=== PATIENT | male | born 1960 | race Caucasian/White ===

== ENCOUNTER → 2023-06-30 | Outpatient (CLI) | payer OTHER, SELFPAY ==
[2023-06-30 12:35] LABS: Absolute Lymphocyte Count 1.15 X10^3/uL (0.83-4.51); Absolute Neutrophil Count 2.2 X10^3/uL (2.0-7.7); Basophil# 0.01 X10^3/uL; Basophil% 0.3 % (0-1); Eosinophil# 0.07 X10^3/uL; Eosinophils% 1.9 % (0-5); Hematocrit 45.8 % (40-54); Hemoglobin 15.3 g/dL (13.0-16.5); Lymphocyte # 1.15 X10^3/ul (0.83-4.51); Lymphocyte % 31.3 % (19-41); Mean Corp Hgb Conc 33.4 g/dL (32-36); Mean Corpuscular Hgb 31.5 pg (27.0-32.0); Mean Corpuscular Volume 94.2 fL (80-94); Mean Platelet Vol. 11.1 fl (6.2-12.0); Monocyte# 0.27 X10^3/uL; Monocyte% 7.3 % (0-10); NRBC Flagged by Analyzer 0 % (0-5); Neutrophil # 2.17 X10^3/uL (2.7-7.7); Neutrophil % 58.9 % (47-70); Platelet Count 153 K/mm3 (150-450); RBC Distribution Width CV 13.4 % (11.6-14.6); Red Blood Count 4.86 M/mm3 (4.6-6.2); White Blood Count 3.7 K/mm3 (4.4-11.0)
[2023-06-30 13:14] LABS: ALB/GLOB Ratio 1.2 RATIO (0.9-2.4); AST(SGOT) 18 U/L (15-37); Alanine Aminotransfer ALT/SGPT 26 U/L (16-61); Alkaline Phosphatase 71 U/L (45-117); Anion Gap 4 (5-15); BUN 20 mg/dL (7-18); BUN/Creat Ratio 22.5 RATIO (10-20); Calcium,Total 9.3 mg/dL (8.5-10.1); Chloride 109 mmol/L (98-107); Cholesterol 262 mg/dL (200); Creatinine, Serum 0.89 mg/dL (0.70-1.30); EST Glomerular Filtration Rate 92 mL/min (>60); Est Glom Filt Rate - Afr Amer 111 mL/min (>60); Globulin 3.4 g/dL (2.2-4.2); Glucose 91 mg/dL (74-106); High Density Lipoprotein 60 mg/dL; PSA,Total- Diagnostic < 0.01 ng/mL (0.0-4.0); Potassium 4.5 mmol/L (3.5-5.1); Protein, Total 7.4 g/dL (6.4-8.2); Sodium Level 139 mmol/L (136-145); Triglycerides 71 mg/dL; Very Low Density Lipoprotein 14 mg/dL (5-40)
== END | disposition home or self-care (01) ==
LOC: BIMLAB 11:06
PROVIDERS: Visit Provider Internal Medicine
DX: Z00.00 Encounter for general adult medical examination without abnormal findings (principal); Z13.6 Encounter for screening for cardiovascular disorders; Z85.46 Personal history of malignant neoplasm of prostate
CPT/HCPCS: 36415; 80053; 80061; 84153; 85025

== ENCOUNTER → 2024-01-20 | Outpatient (CLI) | payer OTHER, SELFPAY ==
[2024-01-20 13:42] LABS: PSA,Total- Diagnostic 0.01 ng/mL (0.0-4.0)
== END | disposition home or self-care (01) ==
LOC: BIMLAB 11:11
PROVIDERS: PCP Internal Medicine; Visit Provider Internal Medicine
DX: Z85.46 Personal history of malignant neoplasm of prostate (principal)
CPT/HCPCS: 36415; 84153

== ENCOUNTER → 2024-07-10 | Outpatient (CLI) | payer OTHER, MEDICAID, SELFPAY ==
[2024-07-10 12:10] LABS: Absolute Lymphocyte Count 1.09 X10^3/uL (0.83-4.51); Basophil# 0.03 X10^3/uL; Basophil% 0.9 % (0-1); Eosinophils% 2.9 % (0-5); Hematocrit 44.7 % (40-54); Hemoglobin 14.9 g/dL (13.0-16.5); Lymphocyte # 1.09 X10^3/ul (0.83-4.51); Lymphocyte % 31.2 % (19-41); Mean Corp Hgb Conc 33.3 g/dL (32-36); Mean Corpuscular Hgb 31.6 pg (27.0-32.0); Mean Corpuscular Volume 94.7 fL (80-94); Mean Platelet Vol. 11.3 fl (6.2-12.0); Monocyte# 0.31 X10^3/uL; Monocyte% 8.9 % (0-10); NRBC Flagged by Analyzer 0 % (0-5); Neutrophil # 1.96 X10^3/uL (2.7-7.7); Neutrophil % 56.1 % (47-70); Platelet Count 157 K/mm3 (150-450); RBC Distribution Width CV 13.2 % (11.6-14.6); RBC Distribution Width SD 46.6 fl (35.1-43.9); Red Blood Count 4.72 M/mm3 (4.6-6.2); White Blood Count 3.5 K/mm3 (4.4-11.0)
[2024-07-10 12:36] LABS: ALB/GLOB Ratio 1.1 RATIO (0.9-2.4); AST(SGOT) 20 U/L (15-37); Alanine Aminotransfer ALT/SGPT 31 U/L (16-61); Albumin, Serum 3.9 g/dL (3.2-5.0); Alkaline Phosphatase 68 U/L (45-117); Anion Gap 7 (5-15); BUN 14 mg/dL (7-18); BUN/Creat Ratio 15.2 RATIO (10-20); Calcium,Total 9.3 mg/dL (8.5-10.1); Chloride 110 mmol/L (98-107); Cholesterol 187 mg/dL (200); Creatinine, Serum 0.92 mg/dL (0.70-1.30); EST Glomerular Filtration Rate 88 mL/min (>60); Est Glom Filt Rate - Afr Amer 107 mL/min (>60); Globulin 3.4 g/dL (2.2-4.2); Glucose 99 mg/dL (74-106); High Density Lipoprotein 62 mg/dL; PSA,Total - Annual Screen 0.03 ng/mL (0.00-4.00); Potassium 4.2 mmol/L (3.5-5.1); Protein, Total 7.3 g/dL (6.4-8.2); Sodium Level 142 mmol/L (136-145); Triglycerides 200 mg/dL; Very Low Density Lipoprotein 40 mg/dL (5-40)
== END | disposition home or self-care (01) ==
LOC: BIMLAB 09:02
PROVIDERS: PCP Internal Medicine; Visit Provider Nurse Practitioner
DX: Z00.00 Encounter for general adult medical examination without abnormal findings (principal); C61 Malignant neoplasm of prostate
CPT/HCPCS: 80053; 80061; 84153; 85025; G0103

== ENCOUNTER → 2025-07-16 | Outpatient (CLI) | payer OTHER, SELFPAY ==
--- OUTSIDE RECORDS SUMMARY | 2025-07-16 10:50 | XMS RPT_ITS | CCD ---
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 Name Role Phone BASILIO GONZALEZ Unavailable Unavailable PHYSICIAN, NONE Unavailable Unavailable Forrest Kelsey MD Primary Care Provider [phone] Forrest Kelsey MD Primary Care Provider Forrest Kelsey MD Primary Care Provider FORREST KELSEY Primary Care Unavailable JEOVANY PETERSEN Attending Unavailable FORREST KELSEY Primary Care Unavailable FARNAZ, JAYRAM Referring Unavailable FARNAZ, CECILIOYRAM Attending Unavailable FORREST KELSEY Primary Care Unavailable FORREST KELSEY Primary Care Unavailable FARNAZ, JAYRAM Referring Unavailable FORREST KELSEY Primary Care Unavailable FARNAZ, JAYRAM Referring Unavailable KATARINA KELSEYREY Karlene Primary Care Unavailable FARNAZ, JAYRAM Referring Unavailable FARNAZ, JAYRAM Referring Unavailable FORREST KELSEY Primary Care Unavailable Dr. Liz Salinas Attending Provider Liz Salinas Primary Care Unavailable Liz Salinas Referring Unavailable Claudia Quiñonez Attending Unavailable Liz Salinas Primary Care Unavailable Claudia Quiñonez Attending Unavailable Liz Salinas Primary Care Unavailable Liz Salinas Attending Unavailable Liz Salinas Primary Care Unavailable Liz Salinas Attending Unavailable Liz Salinas Referring Unavailable Medications Current Medications Medication Drug Class(es) Dates Sig (Normalized) Sig (Original) atorvastatin 10 mg oral tablet (3 sources) HMG-CoA Reductase Inhibitor Start: 06-30-2023 End: 09-04-2023 take 1 tablet by mouth at bedtime Atorvastatin (Lipitor) 10 mg tablet Active 10 MG PO AT BEDTIME 90 September 04, 2023 7:15pm azithromycin 250 mg oral tablet (1 source) Macrolide Antimicrobial Start: 03-02-2022 End: 03-07-2022 azithromycin (ZITHROMAX Z-CARLINE) 250 mg tablet Take 2 tablets day one, then, 1 tablet daily until gone. 6 tablet 0 03/02/2022 03/07/2022 Active Comment on above: Take 2 tablets day o ne, then, 1 tablet daily until gone. diphenhydrAMINE hydrochloride 25 mg oral capsule (9 sources) Histamine-1 Receptor Antagonist Start: 06-30-2023 take 1 capsule by mouth at bedtime Diphenhydramine Hcl (Benadryl) 25 mg capsule Active 25 MG PO AT BEDTIME June 30, 2023 12:00am take 25 mg by mouth once daily at bedtime diphenhydramine HCl (BENADRYL ORAL) Take 25 mg by mouth daily at bedtime. 0 Active Comment on above: Take 25 mg by mouth daily at bedtime. tadalafil 20 mg oral tablet (16 sources) Phosphodiesterase 5 Inhibitor Start: 06-30-2023 Tadalafil Active MG PO June 30, 2023 12:00am Start: 12-31-2021 Tadalafil (JYOTI LIS) 20 mg tab(s) Take 1 tablet by mouth as needed. 1-2 hours before sexual intercourse. 30 tablet 5 12/31/2021 Active Tadalafil (CIALI S) 5 mg tablet Take 5 mg by mouth. 0 Active Comment on above: Take 5 mg by mouth. Take 1 tablet by junior th as needed. 1-2 hours before sexual intercourse. Completed/Discontinued Medications Medication Drug Class(es) Dates Sig (Normalized) Sig (Original) mecobalamin (7 sources) take 1 tablet by mouth once daily mecobalamin (B12 ACTIVE ORAL) Take 1 tablet by mouth once daily. 0 Active Comment on above: Take 1 tablet by junior th once daily. multivitamin/folic acid/zinc (XVVCGDMCRREC-LN-G INC ORAL) (7 sources) multivitamin/fol ic acid/zinc (MGKCQHWNVVAO-LH-X INC ORAL) Take by mouth once daily. 0 Active Comment on above: Take by mouth once d aily. 24 hr oxybutynin chloride 10 mg extended release oral tablet (5 sources) Cholinergic Muscarinic Antagonist Start: 03-06-2021 take 1 tablet by mouth once daily oxybutynin ER (DITROPAN XL) 10 mg 24 hr tablet Take 1 tablet by mouth once daily. 30 tablet 3 03/06/2021 Active Comment on above: Take 1 tablet by junior th once daily. Problems Active Problems Problem Classification Problem Date Documented Da te Episodic/Chronic Cancer of prostate (9 sources) Malignant tumor of prostate; Translations: [Malignant neoplasm of prostate] Onset: 08-26-2021 08-26-2021 Chronic Hyperplasia of prostate (7 sources) Benign prostatic hyperplasia; Translations: [Benign prostatic hyperplasia without lower urinary tract symptoms] Onset: 04-27-2018 04-27-2018 Chronic Immunizations and screening for infectious disease (2 sources) Vaccination needed; Translations: [Encounter for immunization] Episodic Other male genital disorders (7 sources) Male erectile dysfunction, unspecified; Translations: [Impotence of organic origin] Onset: 08-26-2021 08-26-2021 Chronic Other upper respiratory infections (1 source) Acute sinusitis; Translations: [Acute sinusitis, unspecified] Episodic Past or Other Problems Problem Classification Problem Date Documented Date Episodic/Chronic Cancer of prostate (1 source) Personal history of malignant neoplasm of prostate; Translations: [Personal history of malignant neoplasm of prostate] Onset: 03-13-2024 Episodic Other connective tissue disease (7 sources) Lateral epicondylitis of right humerus; Translations: [Lateral epicondylitis, right elbow] Onset: 04-27-2018 04-27-2018 Episodic Other eye disorders (1 source) Other specified disorders of eye and adnexa; Translations: [Other specified disorders of eye and adnexa] Onset: 04-02-2024 Episodic Other eye disorders (1 source) Ocular pain, right eye; Translations: [Ocular pain, right eye] Onset: 04-02-2024 Episodic Other screening for suspected conditions (not mental disorders or infectious disease) (20 sources) Patient encounter status; Translations: [Encounter for screening for malignant neoplasm of colon] Onset: 04-27-2018 04-27-2018 Episodic Residual codes; unclassified (7 sources) Family history of multiple myeloma; Translations: [Family history of other malignant neoplasms of lymphoid, hematopoietic and related tissues] Onset: 12-03-2020 12-03-2020 Episodic Residual codes; unclassified (7 sources) Family history of Parkinson's disease; Translations: [Family history of epilepsy and other diseases of the nervous system] Onset: 12-03-2020 12-03-2020 Episodic Screening and history of mental health and substance abuse codes (7 sources) Ex-smoker; Translations: [Personal history of nicotine dependence] Onset: 04-27-2018 04-27-2018 Episodic Results Test Name Value Interpretation Reference Range Facility CBC W/Diff, Automatedon 06-24 Absolute Lymph 1.09 X10 3/uL Normal 0.83-4.51 [facility] Comment on above: Performed By: #### L 100.0100, L501.9910, L500.4100, L500.4050 #### [facility] [address] [place], [address] Absolute Neut 2.0 X10 3/uL Normal 2.0-7.7 [facility] Comment on above: Performed By: #### L 100.0100, L501.9910, L500.4100, L500.4050 #### [facility] [address] [place], [address] Basophils/100 WBC (Bld) 0.9 % Normal 0-1 [facility] Comment on above: Performed By: #### L 100.0100, L501.9910, L500.4100, L500.4050 #### [facility] [address] [place], [address] Eosinophils/100 WBC (Bld) 2.9 % Normal 0-5 [facility] Comment on above: Performed By: #### L 100.0100, L501.9910, L500.4100, L500.4050 #### [facility] [address] [place], [address] Erythrocyte distribution width (RBC) [Ratio] 13.2 % Normal 11.6-14.6 [facility] Comment on above: Performed By: #### L 100.0100, L501.9910, L500.4100, L500.4050 #### [facility] [address] [place], [address] Hematocrit (Bld) [Volume fraction] 44.7 % Normal 40-54 [facility] Comment on above: Performed By: #### L 100.0100, L501.9910, L500.4100, L500.4050 #### [facility] [address] [place], [address] Hemoglobin (Bld) [Mass/Vol] 14.9 g/dL Normal 13.0-16.5 [facility] Comment on above: Performed By: #### L 100.0100, L501.9910, L500.4100, L500.4050 #### [facility] [address] [place], [address] IG% 0.000 Normal 0.0-0.9 [facility] Comment on above: Result Comment: IG% - Immature Granulocytes (promyelocytes, myelocytes and metamyelocytes) > 1% indicates that a LEFT SHIFT is Present. Performed By: #### L 100.0100, L501.9910, L500.4100, L500.4050 #### [facility] [address] [place], [address] Lymphocytes/100 WBC (Bld) 31.2 % Normal 19-41 [facility] Comment on above: Performed By: #### L 100.0100, L501.9910, L500.4100, L500.4050 #### [facility] [address] [place], [address] MCH (RBC) [Entitic mass] 31.6 pg Normal 27.0-32.0 [facility] Comment on above: Performed By: #### L 100.0100, L501.9910, L500.4100, L500.4050 #### [facility] [address] [place], [address] MCHC (RBC) [Mass/Vol] 33.3 g/dL Normal 32-36 [facility] Comment on above: Performed By: #### L 100.0100, L501.9910, L500.4100, L500.4050 #### [facility] [address] [place], [address] MCV (RBC) [Entitic vol] 94.7 fL High 80-94 [facility] Comment on above: Performed By: #### L 100.0100, L501.9910, L500.4100, L500.4050 #### [facility] [address] [place], [address] Monocytes/100 WBC (Bld) 8.9 % Normal 0-10 [facility] Comment on above: Performed By: #### L 100.0100, L501.9910, L500.4100, L500.4050 #### [facility] [address] [place], [address] Neutrophils/100 WBC (Bld) 56.1 % Normal 47-70 [facility] Comment on above: Performed By: #### L 100.0100, L501.9910, L500.4100, L500.4050 #### [facility] [address] [place], [address] Nucleated RBC (Bld) [#/Vol] 0 10*3/uL Normal 0-5 [facility] Comment on above: Performed By: #### L 100.0100, L501.9910, L500.4100, L500.4050 #### [facility] [address] [place], [address] Platelet mean volume (Bld) [Entitic vol] 11.3 fL Normal 6.2-12.0 [facility] Comment on above: Performed By: #### L 100.0100, L501.9910, L500.4100, L500.4050 #### [facility] [address] [place], [address] Platelets (Bld) [#/Vol] 157 10*3/uL Normal 150-450 [facility] Comment on above: Performed By: #### L 100.0100, L501.9910, L500.4100, L500.4050 #### [facility] [address] [place], [address] RBC (Bld) [#/Vol] 4.72 10*6/uL Normal 4.6-6.2 [facility] Comment on above: Performed By: #### L 100.0100, L501.9910, L500.4100, L500.4050 #### [facility] [address] [place], [address] RDW SD 46.6 fl High 35.1-43.9 [facility] Comment on above: Performed By: #### L 100.0100, L501.9910, L500.4100, L500.4050 #### [facility] [address] [place], [address] WBC (Bld) [#/Vol] 3.5 10*3/uL Low 4.4-11.0 [facility] Comment on above: Performed By: #### L 100.0100, L501.9910, L500.4100, L500.4050 #### [facility] [address] [place], [address] Comprehensive Metabolic Prof [facility] 07-10-2024 Albumin [Mass/Vol] 3.9 g/dL Normal 3.2-5.0 [facility] Comment on above: Performed By: #### L 100.0100, L501.9910, L500.4100, L500.4050 #### [facility] [address] [place], [address] Albumin/Globulin [Mass ratio] 1.1 {ratio} Normal 0.9-2.4 [facility] Comment on above: Performed By: #### L 100.0100, L501.9910, L500.4100, L500.4050 #### [facility] [address] [place], [address] ALK P 68 U/L Normal 45-117 [facility] Comment on above: Performed By: #### L 100.0100, L501.9910, L500.4100, L500.4050 #### [facility] [address] [place], [address] ALT [Catalytic activity/Vol] 31 U/L Normal 16-61 [facility] Comment on above: Performed By: #### L 100.0100, L501.9910, L500.4100, L500.4050 #### [facility] [address] [place], [address] AST [Catalytic activity/Vol] 20 U/L Normal 15-37 [facility] Comment on above: Performed By: #### L 100.0100, L501.9910, L500.4100, L500.4050 #### [facility] [address] [place], [address] Bilirubin [Mass/Vol] 0.80 mg/dL Normal 0.20-1.00 [facility] Comment on above: Result Comment: For patients on eltrombopag therapy, use of Dimension [place] TBIL is not recommended. Performed By: #### L 100.0100, L501.9910, L500.4100, L500.4050 #### [facility] [address] [place], [address] BUN/CRE 15.2 RATIO Normal 10-20 [facility] Comment on above: Performed By: #### L 100.0100, L501.9910, L500.4100, L500.4050 #### [facility] [address] [place], [address] CA,Total 9.3 mg/dL Normal 8.5-10.1 [facility] Comment on above: Performed By: #### L 100.0100, L501.9910, L500.4100, L500.4050 #### [facility] [address] [place], [address] Chloride [Moles/Vol] 110 mmol/L High 98-107 [facility] Comment on above: Performed By: #### L 100.0100, L501.9910, L500.4100, L500.4050 #### [facility] [address] [place], [address] CO2 [Moles/Vol] 25.0 mmol/L Normal 21.0-32.0 [facility] Comment on above: Performed By: #### L 100.0100, L501.9910, L500.4100, L500.4050 #### [facility] [address] [place], [address] Creatinine [Mass/Vol] 0.92 mg/dL Normal 0.70-1.30 [facility] Comment on above: Result Comment: The validity of the calculated GFR GFRAA in patients over 70 years has not been determined. Clinical correlation is essential. Performed By: #### L 100.0100, L501.9910, L500.4100, L500.4050 #### [facility] [address] [place], [address] EST GFR - AA 107 mL/min Normal >60 [facility] Comment on above: Result Comment: Afri can [place] GFR Calc Performed By: #### L 100.0100, L501.9910, L500.4100, L500.4050 #### [facility] [address] [place], [address] GAP 7 Normal 5-15 [facility] Comment on above: Performed By: #### L 100.0100, L501.9910, L500.4100, L500.4050 #### [facility] [address] [place], [address] GFR/1.73 sq M.predicted among non-blacks MDRD (S/P/Bld) [Vol rate/Area] 88 mL/min/{1.73_m2} Normal >60 [facility] Comment on above: Result Comment: Non- GFR Calc Performed By: #### L 100.0100, L501.9910, L500.4100, L500.4050 #### [facility] [address] [place], [address] Globulin (S) [Mass/Vol] 3.4 g/dL Normal 2.2-4.2 [facility] Comment on above: Performed By: #### L 100.0100, L501.9910, L500.4100, L500.4050 #### [facility] [address] [place], [address] Glucose [Mass/Vol] 99 mg/dL Normal 74-106 [facility] Comment on above: Performed By: #### L 100.0100, L501.9910, L500.4100, L500.4050 #### [facility] [address] [place], [address] Potassium [Moles/Vol] 4.2 mmol/L Normal 3.5-5.1 [facility] Comment on above: Performed By: #### L 100.0100, L501.9910, L500.4100, L500.4050 #### [facility] [address] [place], [address] Sodium [Moles/Vol] 142 mmol/L Normal 136-145 [facility] Comment on above: Performed By: #### L 100.0100, L501.9910, L500.4100, L500.4050 #### [facility] [address] [place], [address] T PROT 7.3 g/dL Normal 6.4-8.2 [facility] Comment on above: Performed By: #### L 100.0100, L501.9910, L500.4100, L500.4050 #### [facility] [address] [place], [address] Urea nitrogen [Mass/Vol] 14 mg/dL Normal 7-18 [facility] Comment on above: Performed By: #### L 100.0100, L501.9910, L500.4100, L500.4050 #### [facility] [address] [place], [address] Internal Medicine Office Vis itokaren 07-10-2024 Internal Medicine Office Visit [facility] [address] [place] [address] [place] [address] OFFICE VISIT Date of Service: 07/10/24 MR#: [id number] Acct: [id number] Name: GABE PAINTING Rep #: [id number] : 1960 Provider: LORENZO tompkins Age/Sex: 63/M Location[place] [facility] [place] Status: Signed Intake Vital Signs 06/30/23 10:27 02/07/24 08:25 07/10/24 08:17 Height 5 ft 6 in 5 ft 6 in 5 ft 6 in Weight: 152 lb 8 oz BMI 24.6 BP 120/82 H Blood Pressure Location Lt brachial Position Sitting Respiration 16 Pulse 57 L Pulse Source Monitor Temp 97.5 F L Temp Source Temporal Pulse Oximetry (%) 97 Oxygen Delivery Method room air Intake Visit Reasons: yearly Chief Complaint: yearly Art Preparator Required: No Accompanied by: Self Is patient in pain?: No Allergies No Known Allergies Allergy (Unverified 07/10/24 08:14) Medications ???Medication ???Instructions ???Recorded ???Confirmed ???Type atorvastatin 10 mg tablet (Lipitor) 10 mg PO QHS #90 tabs 02/13/24 07/10/24 Rx PFSH Medical History Prostate cancer Cancer Surgical History S/P tonsillectomy Finger amputation, no complication H/O prostatectomy Family History Mother Cancer multiple myeloma Brother Cancer multiple myeloma Father Cancer lung Grandmother Diabetes Uncle Diabetes Social History adopted: No household members: spouse 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 current occupational exposures/hazards: No pets and animals: No sexually active: Yes Smoking Status: Former smoker quit date: 10/24/89 pack-years: 10 Tobacco: How many years used: 10 Electronic Cigarette Use: not used how long ago did patient quit smokinish years ago alcohol intake: current alcohol intake frequency: a few times a week substance use type: does not use caffeine: Yes (1) Type: coffee what type of physical activity do you participate in: walking frequency: daily seatbelt use: always do you feel safe at home: Yes HPI HPI Chief Complaint: yearly Details: GABE PAINTING, is a 63 M who presents to the office today for routine annual physical. He is a patient of Dr. Vitale and was last evaluated in office on 02/07/2020 for reported eye pain that has resolved. He is due for routine labs. He is up-to-date on preventative screenings with exception of skin cancer screening. He is up-to-date on immunizations with the exception of annual influenza vaccine which he declines today. He does not smoke, he does need a refill of atorvastatin but would like to consider discontinuing this based off of updated labs. Patient is very active and exercises daily, he monitors his diet. He has a past medical history of prostate cancer. He underwent prostatectomy in 2020. He reports postoperatively he did develop urinary incontinence that is improving. He denies nocturia, hematuria or dysuria. He no longer follows with urology. He is no longer taking tadalafil. At his last visit he had reported some numbness to his left upper arm with radiation near the bicep but stopping at the elbow. He reports it continues to improve and denies other symptoms such as motor weakness, decreased hand grasp or difficulty with elbow or shoulder movement. He denies shoulder and neck pain. He feels that he can continue to monitor this. He additionally reports he has chronic right knee pain after falling on ice several years ago. It does not impact his activities of daily living or physical activity, pain only had a pinpoint region with deep palpation. He feels he may also continue to monitor this. At his last visit routine labs were drawn showing hyperlipidemia and he was prescribed atorvastatin which she has been taking as prescribed up until the past week or so when he ran out of his prescription. He states he is interested in discontinuing this medication and is requesting a lab recheck at this time. He has no further questions or concerns at this time. ROS Const Constitutional: No body ache, chills, excessive sweating, fatigue, fever(s), frequent falls, headache(s), snoring, weakness or change in appetite Eyes Eyes: No blurry vision, change in vision, eye pain or Light sensitivity ENT ENT: No abnormal hearing, ear or mastoid pain, tinnitus, nasal congestion, headache(s), neck pain or sore throat Resp Respiratory: No cough, shortness of breath, snoring or wheezing Cardio Cardiology: No chest pain at rest, chest pain with exertion, excessive sweating, dyspnea on exertion, lightheadedness, orthopnea or palpitations Gastro GI: No abdominal pain, change in bowel habits, constipation, (more content not included)... Normal [facility] Lipid Profileon 07-10-2024 Cholesterol [Mass/Vol] 187 mg/dL Normal 200 [facility] Comment on above: Result Comment: <200 mg/dL Desirable 200-240 mg/dL Borderline >240 mg/dL High Risk Performed By: #### L 100.0100, L501.9910, L500.4100, L500.4050 #### [facility] [address] [place], [address] Cholesterol in HDL [Mass/Vol] 62 mg/dL Normal [facility] Comment on above: Result Comment: The drugs N-Acetylcysteine and Metamizole may falsely depress this assay. Reference Range HDL <40 mg/dL Low HDL Cholesterol HDL >or= 60 mg/dL High HDL Cholesterol Performed By: #### L 100.0100, L501.9910, L500.4100, L500.4050 #### [facility] [address] [place], [address] Cholesterol in LDL [Mass/Vol] 85 mg/dL Normal 0-130 [facility] Comment on above: Performed By: #### L 100.0100, L501.9910, L500.4100, L500.4050 #### [facility] [address] [place], [address] Cholesterol in VLDL [Mass/Vol] 40 mg/dL Normal 5-40 [facility] Comment on above: Performed By: #### L 100.0100, L501.9910, L500.4100, L500.4050 #### [facility] [address] [place], [address] Triglyceride [Mass/Vol] 200 mg/dL High [facility] Comment on above: Result Comment: The drugs N-Acetylcysteine and Metamizole may falsely depress this assay. Serum Triglycerides Reference Interval Normal <150 mg/dL Borderline high 150 - 199 mg/dL High 200 - 499 mg/dL Very High > or = 500 mg/dL Performed By: #### L 100.0100, L501.9910, L500.4100, L500.4050 #### [facility] [address] [place], [address] PSA,Total - Annual Screenon 07-10-2024 PSA,TOT SCREEN 0.03 ng/mL Normal 0.00-4.00 [facility] Comment on above: Result Comment: This test was performed using the TPSA assay method for the M-KOPA chemistry system. Values obtained with different assay methods cannot be used interchangably. When changing PSA assays in the course of monitoring a patient, additional sequential testing should be carried out to confirm baseline values. Performed By: #### L 100.0100, L501.9910, L500.4100, L500.4050 #### [facility] [address] [place], [address] Internal Medicine Office Vis ito 02-06-2024 Internal Medicine Office Visit [facility] [address] [place] [address] [place] [address] OFFICE VISIT Date of Service: 02/07/24 MR#: [id number] Acct: [id number] Name: GABE PAINTING Rep #: [id number] : 1960 Provider: Dr. Liz jaffe MD Age/Sex: 63/M Location[place] [facility] [place] Status: Signed Intake Vital Signs 06/30/23 10:27 02/07/24 08:25 Height 5 ft 6 in 5 ft 6 in Weight: 154 lb BMI 24.8 BP 124/70 H Blood Pressure Location Lt brachial Position Sitting Respiration 16 Pulse 59 L Pulse Source Monitor Temp 97.7 F L Temp Source Temporal Pulse Oximetry (%) 96 Oxygen Delivery Method room air Intake Visit Reasons: RT EYE IRRITATION/PAIN Chief Complaint: eye irritation Art Preparator Required: No Accompanied by: Self Is patient in pain?: No Allergies No Known Allergies Allergy (Unverified 02/07/24 08:23) Medications diphenhydramine HCl 25 mg capsule (Benadryl) 25 mg PO QHS PRN 06/30/23 [History Confirmed 02/07/24] tadalafil 20 mg tablet mg PO 06/30/23 [History Confirmed 02/07/24] atorvastatin 10 mg tablet (Lipitor) 10 mg PO QHS #90 tabs 09/04/23 [Rx Confirmed 02/07/24] ciprofloxacin HCl 0.3 % eye ointment See Rx Instructions ophthalmic (eye) .COMPLEX #3.5 grams 02/07/24 [Rx Confirmed 02/07/24] PFSH Medical History Cancer Prostate cancer Surgical History Finger amputation, no complication H/O prostatectomy S/P tonsillectomy Family History Mother Cancer multiple myeloma Brother Cancer multiple myeloma Father Cancer lung Grandmother Diabetes Uncle Diabetes Social History adopted: No household members: spouse 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 current occupational exposures/hazards: No pets and animals: No sexually active: Yes Smoking Status: Former smoker quit date: 10/24/89 pack-years: 10 Tobacco: How many years used: 10 Electronic Cigarette Use: not used how long ago did patient quit smokinish years ago alcohol intake: current alcohol intake frequency: a few times a week substance use type: does not use caffeine: Yes (1) Type: coffee what type of physical activity do you participate in: walking frequency: daily seatbelt use: always do you feel safe at home: Yes HPI HPI Chief Complaint: eye irritation Details: GABE PAINTING, is a 63 M who presents to the office today for an acute visit. He has concerns about eye pain/irritation. He reports that it is his right eye. He reports he thought it was originally pink eye. He reports he is having some eye redness, irritation and sensitivity to light. He reports initially he had some discharge/crusting, but that has since resolved. He reports it started about a month ago. He reports it just isn't getting better, but hasn't worsened. He denies any vision changes or pain with moving his eye around. He denies any scratches or injuries. He denies any associated itching or eyelid swelling. He doesn't wear contacts. He denies any involvement of his left eye. He has been using some clear eye eye drops. He states they haven't helped much. He denies any recent URI symptoms nor any fevers. He doesn't have an eye doctor. ROS Const Constitutional: No body ache, chills, excessive sweating, fatigue, fever(s), frequent falls, headache(s), snoring, weakness or change in appetite Eyes Eyes: Positive for irritation and Light sensitivity; No blurry vision, change in vision, discharge (resolved) or eye pain ENT ENT: No abnormal hearing, ear or mastoid pain, tinnitus, nasal congestion, headache(s), neck pain or sore throat Resp Respiratory: No cough, shortness of breath, snoring or wheezing Cardio Cardiology: No chest pain at rest, chest pain with exertion, excessive sweating, dyspnea on exertion, lightheadedness, orthopnea or palpitations Gastro GI: No abdominal pain, change in bowel habits, constipation, cramping, diarrhea, nausea/dyspepsia or vomiting Genitourinary Male: No burning urination, painful urination, urinary incontinence or urinary frequency Musc Musculoskeletal: No abnormal gait, joint pain, back pain, limited range of motion, muscle weakness, neck pain or numbness Skin Skin: No dry skin, redness, lesions, itchy eyes, rash or wounds Neuro Neurology: No abnormal gait, abnormal hearing, dizziness, weakness, frequent falls, headache(s), memory loss, numbness or fainting Psych Psychiatric: No anxiety, No change in appetite, No depression, No memory loss and No Thoughts of harming yourself/Others Endo Endocrine: No cold intolerance, excessive sweating, fatigue, flushing, heat intolerance, increased thirst/drinking o (more content not included)... Normal [facility] Basophil percentageOrdered B y: Liz Salinas on 01-20-2024 Basophil percentage 0.01 ng/mL 0.0-4.0 [facility] Comment on above: This test was perfor med using the TPSA assay method for [employer] chemistry system. Values obtained with differentassay methods cannot be used interchangably.When changing PSA assays in the course of monitoring apatient, additional sequential testing should be carriedout to confirm baseline values. PSA,Total- Diagnosticon 12-23 PSA, DIAGNOSTIC 0.01 ng/mL Normal 0.0-4.0 [facility] Comment on above: Result Comment: This test was performed using the TPSA assay method for the [employer] chemistry system. Values obtained with different assay methods cannot be used interchangably. When changing PSA assays in the course of monitoring a patient, additional sequential testing should be carried out to confirm baseline values. Performed By: #### L [phone] #### [facility] [address] [place], [address] Absolute lymphocyte countOrd ered By: Liz Salinas on 06-30-2023 Lymphocytes Auto (Unsp spec) [#/Vol] 1.15 10*3/uL 0.83-4.51 [facility] Basophil percentageOrdered B y: Liz Sailnas on 06-30-2023 Basophils/100 WBC (Bld) 0.3 % 0-1 [facility] Bilirubin [Mass/Vol] 0.70 mg/dL 0.20-1.00 [facility] Comment on above: For patients on eltr ombopag therapy, use of Dimension [place] TBIL is not recommended. Chloride [Moles/Vol] 109 mmol/L 98-107 [facility] Cholesterol [Mass/Vol] 262 mg/dL <200 [facility] Comment on above: <200 mg/dL Desirable 200-240 mg/dL Borderline >240 mg/dL High Risk Eosinophils/100 WBC (Bld) 1.9 % 0-5 [facility] Glucose [Mass/Vol] 91 mg/dL 74-106 [facility] Neutrophils (Bld) [#/Vol] 2.2 10*3/uL 2.0-7.7 [facility] Neutrophils/100 WBC (Bld) 58.9 % 47-70 [facility] Potassium [Moles/Vol] 4.5 mmol/L 3.5-5.1 [facility] Protein [Mass/Vol] 7.4 g/dL 6.4-8.2 [facility] Sodium [Moles/Vol] 139 mmol/L 136-145 [facility] Triglyceride [Mass/Vol] 71 mg/dL <199 [facility] Comment on above: The drugs N-Acetylcy steine and Metamizole may falsely depress this assay.Serum Triglycerides Reference Interval Normal <150 mg/dL Borderline high 150 - 199 mg/dL High 200 - 499 mg/dL Very High > or = 500 mg/dL WBC (Bld) [#/Vol] 3.7 10*3/uL 4.4-11.0 [facility] Blood erythrocytes count (nu mber/volume)Ordered By: Liz Salinas on 06-30-2023 RBC (Bld) [#/Vol] 4.86 10*6/uL 4.6-6.2 [facility] Blood hemoglobin measurement (mass/volume)Ordered By: Liz Salinas on 06-30-2023 Hemoglobin (Bld) [Mass/Vol] 15.3 g/dL 13.0-16.5 [facility] Blood lymphocytes/100 leukoc ytesOrdered By: Liz Salinas on 06-30-2023 Lymphocytes/100 WBC (Bld) 31.3 % 19-41 [facility] Blood monocytes/100 leukocyt esOrdered By: Liz Salinas on 06-30-2023 Monocytes/100 WBC (Bld) 7.3 % 0-10 [facility] Blood platelet mean volumeOr dered By: Liz Salinas on 06-30-2023 Platelet mean volume (Bld) [Entitic vol] 11.1 fL 6.2-12.0 [facility] Determination of erythrocyte mean corpuscular volume (MCV)Ordered By: Liz Salinas on 06-30-2023 MCV (RBC) [Entitic vol] 94.2 fL 80-94 [facility] Hematocrit Auto (Bld) [Volum e fraction]Ordered By: Liz Salinas on 06-30-2023 Hematocrit (Bld) [Volume fraction] 45.8 % 40-54 [facility] - Chemistry and C hemistry - challengeOrdered By: Liz Salinas on 06-30-2023 ALP [Catalytic activity/Vol] 71 U/L 45-117 [facility] ALT [Catalytic activity/Vol] 26 U/L 16-61 [facility] CO2 [Moles/Vol] 26.0 mmol/L 21.0-32.0 [facility] Globulin (S) [Mass/Vol] 3.4 g/dL 2.2-4.2 [facility] Urea nitrogen/Creatinine [Mass ratio] 22.5 mg/mg 10-20 [facility] - Hematology and Cell countsOrdered By: Liz Salinas on 06-30-2023 Erythrocyte distribution width (RBC) [Entitic vol] 47.0 fL 35.1-43.9 [facility] Erythrocyte distribution width (RBC) [Ratio] 13.4 % 11.6-14.6 [facility] Immature granulocytes/100 WBC (Bld) 0.300 % 0.0-0.9 [facility] Comment on above: IG% - Immature Granu locytes (promyelocytes, myelocytes and metamyelocytes) > 1% indicates that a LEFT SHIFT is Present. MCH (RBC) [Entitic mass] 31.5 pg 27.0-32.0 [facility] Nucleated RBC/100 WBC (Bld) [Ratio] 0 % 0-5 [facility] MCHC Auto (RBC) [Mass/Vol]Or dered By: Liz Salinas on 06-30-2023 MCHC (RBC) [Mass/Vol] 33.4 g/dL 32-36 [facility] No Panel InformationOrdered By: Liz Salinas on 06-30-2023 Estimated GFR (MDRD) Amer 111 mL/min >60 [facility] Comment on above: GFR Calc Estimated GFR (MDRD) Non-Af Amer 92 mL/min >60 [facility] Comment on above: Non- GFR Calc Prostate Specific Antigen Total < 0.01 ng/mL 0.0-4.0 [facility] Comment on above: This test was perfor med using the TPSA assay method for the[employer] chemistry system. Values obtained with differentassay methods cannot be used interchangably.When changing PSA assays in the course of monitoring apatient, additional sequential testing should be carriedout to confirm baseline values. Platelets bldOrdered By: Maciel Salinas on 06-30-2023 Platelets (Bld) [#/Vol] 153 10*3/uL 150-450 [facility] Serum or plasma albumin jamal urement (mass/volume)Ordered By: Liz Salinas on 06-30-2023 Albumin [Mass/Vol] 4.0 g/dL 3.2-5.0 [facility] Serum or plasma albumin/glob ulin mass ratioOrdered By: Liz Salinas on 06-30-2023 Albumin/Globulin [Mass ratio] 1.2 {ratio} 0.9-2.4 [facility] Serum or plasma calcium jamal urement (mass/volume)Ordered By: Liz Salinas on 06-30-2023 Calcium [Mass/Vol] 9.3 mg/dL 8.5-10.1 [facility] Serum or plasma cholesterol in HDL measurement (mass/volume)Ordered By: Liz Salinas on 06-30-2023 Cholesterol in HDL [Mass/Vol] 60 mg/dL >40 [facility] Comment on above: The drugs N-Acetylcy steine and Metamizole may falsely depress this assay. Reference Range HDL <40 mg/dL Low HDL Cholesterol HDL >or= 60 mg/dL High HDL Cholesterol Serum or plasma cholesterol in VLDL measurement (mass/volume)Ordered By: Liz Salinas on 06-30-2023 Cholesterol in VLDL [Mass/Vol] 14 mg/dL 5-40 [facility] Serum or plasma creatinine m easurement (mass/volume)Ordered By: Liz Salinas on 06-30-2023 Creatinine [Mass/Vol] 0.89 mg/dL 0.70-1.30 [facility] Comment on above: The validity of the calculated GFR & GFRAA in patients over 70 years has not been determined. Clinical correlation is essential. Serum or plasma low density lipoprotein (LDL) cholesterol measurement (mass/volume)Ordered By: Liz Salinas on 06-30-2023 Cholesterol in LDL [Mass/Vol] 188 mg/dL 0-130 [facility] Serum or plasma urea nitroge n measurement (mass/volume)Ordered By: Liz Salinas on 06-30-2023 Urea nitrogen [Mass/Vol] 20 mg/dL 7-18 [facility] Thin prep Papanicolaou smear with manual screeningOrdered By: Liz Salinas on 06-30-2023 Thin prep Papanicolaou smear with manual screening 18 U/L 15-37 [facility] Thin prep Papanicolaou smear with manual screening 4 5-15 [facility] PSA SerPl-mCncon 12-22-2022 Prostate specific Ag [Mass/Vol] ng/mL Normal <2.60 [facility] Comment on above: Order Comment: Speci men Type: BLOOD SPECIMEN Ordering Facility: [facility] Address: [address] [place] [id number] Result Comment: Totkarlene colmenares PSA test methodology used is the Electrochemiluminescence Immunoassay by [employer]. Total PSA values by differing methodologies cannot be interchanged. Performed By: #### 2 857-1 #### [facility] CLIA [id number] [address] [place] [address] [facility] Tan 09-27-2022 [facility] Telephone (AKURFL) -- GABE PAINTING ([id number]) 1960 Date Time Provider Department 09/27/22 IVETH PIÑA During your visit today, we recorded the following information about you: Jeannette Horta Cma 09/27/2022 2:41 PM Signed ----- Message from Iveth Piña DO sent at 09/27/2022 1:15 PM EST ----- PSA 0 Jeannette Horta Cma 09/27/2022 2:42 PM Signed Called patient with PSA results. Jeannette Horta Cma Allergies As of Date: 09/27/2022 (No Known Allergies) Date Reviewed: 03/02/2022 Reviewed by: Donaldo Saxena LPN - Fully Assessed Reason for Visit: Results [95] Prescriptions as of 09/27/2022 - Tadalafil (CIALIS) 20 mg tab(s) Take 1 tablet by mouth as needed. 1-2 hours before sexual intercourse. - Tadalafil (CIALIS) 5 mg tablet Take 5 mg by mouth. - oxybutynin ER (DITROPAN XL) 10 mg 24 hr tablet Take 1 tablet by mouth once daily. - diphenhydramine HCl (BENADRYL ORAL) Take 25 mg by mouth daily at bedtime. - multivitamin/folic acid/zinc ([id number] ORAL) Take by mouth once daily. - mecobalamin (B12 ACTIVE ORAL) Take 1 tablet by mouth once daily. Problem List As Of Date 09/27/2022 Noted Resolved Ex-smoker [Z87.891] 04/27/2018 Well adult exam [Z00.00] 04/27/2018 Screen for colon cancer [Z12.11] 04/27/2018 Encounter for screening for diabetes mellitus [*04/27/2018 Screening for prostate cancer [Z12.5] 04/27/2018 Benign prostatic hyperplasia without lower urin*04/27/2018 Right lateral epicondylitis [M77.11] 04/27/2018 Family history of multiple myeloma [Z80.7] 12/03/2020 Family history of Parkinson's disease [Z82.0] 12/03/2020 Prostate cancer (HCC) [C61] 08/26/2021 ED (erectile dysfunction) [N52.9] 08/26/2021 Encounter Status:Closed by JEANNETTE HORTA CMA on 09/27/22 Normal [facility] PSA SerPl-mCncon 09-20-2022 Prostate specific Ag [Mass/Vol] ng/mL Normal <2.60 [facility] Comment on above: Order Comment: Speci men Type: BLOOD SPECIMEN Ordering Facility: [facility] Address: [address] [place] [address] Result Comment: Tota l PSA test methodology used is the Electrochemiluminescence Immunoassay by [employer]. Total PSA values by differing methodologies cannot be interchanged. Performed By: #### 2 857-1 #### [facility] CLIA [id number] [address] [place] [address] [place] CNPBibi 06-29-2022 CNPN Telephone (multiBIND biotecBrandy) -- GABE PAINTING ([id number]) 1960 M Date Time Provider Department 06/29/22 IVETH PIÑA During your visit today, we recorded the following information about you: Bharat Sena Ma 06/29/2022 8:24 AM Signed ----- Message from Iveth Piña DO sent at 06/27/2022 8:09 PM EDT ----- PSA 0 or undetectable Bharat Sena Ma 06/29/2022 8:25 AM Signed Patient informed Via [employer]. Bharat Sena Ma Allergies As of Date: 06/29/2022 (No Known Allergies) Date Reviewed: 03/02/2022 Reviewed by: Donaldo Saxena LPN - Fully Assessed Reason for Visit: Results [95] Prescriptions as of 06/29/2022 - Tadalafil (CIALIS) 20 mg tab(s) Take 1 tablet by mouth as needed. 1-2 hours before sexual intercourse. - Tadalafil (CIALIS) 5 mg tablet Take 5 mg by mouth. - oxybutynin ER (DITROPAN XL) 10 mg 24 hr tablet Take 1 tablet by mouth once daily. - diphenhydramine HCl (BENADRYL ORAL) Take 25 mg by mouth daily at bedtime. - multivitamin/folic acid/zinc ([id number]-GH-TNNR ORAL) Take by mouth once daily. - mecobalamin (B12 ACTIVE ORAL) Take 1 tablet by mouth once daily. Problem List As Of Date 06/29/2022 Noted Resolved Ex-smoker [Z87.891] 04/27/2018 Well adult exam [Z00.00] 04/27/2018 Screen for colon cancer [Z12.11] 04/27/2018 Encounter for screening for diabetes mellitus [*04/27/2018 Screening for prostate cancer [Z12.5] 04/27/2018 Benign prostatic hyperplasia without lower urin*04/27/2018 Right lateral epicondylitis [M77.11] 04/27/2018 Family history of multiple myeloma [Z80.7] 12/03/2020 Family history of Parkinson's disease [Z82.0] 12/03/2020 Prostate cancer (HCC) [C61] 08/26/2021 ED (erectile dysfunction) [N52.9] 08/26/2021 Encounter Status:Closed by BHARAT SENA MA on 06/29/22 Normal [facility] PSA SerPl-mCncon 06-21-2022 Prostate specific Ag [Mass/Vol] ng/mL Normal <2.60 [facility] Comment on above: Order Comment: Speci men Type: BLOOD SPECIMEN Ordering Facility: [facility] Address: [address] [place] [address] Result Comment: Tota l PSA test methodology used is the Electrochemiluminescence Immunoassay by [employer]. Total PSA values by differing methodologies cannot be interchanged. Performed By: #### 2 857-1 #### [facility] CLIA [id number] [address] [facility] [address] [place] CNPNon 04-14-2022 CNPN Telephone (UROLAE) -- GABE PAINTING ([id number]) 1960 M Date Time Provider Department 04/14/22 IVETH PIÑA During your visit today, we recorded the following information about you: Ashlyn Irving Cma 04/14/2022 2:43 PM Signed ----- Message from Iveth Piña DO sent at 04/14/2022 2:37 PM EDT ----- PSA 0 Ashlyn Irving Car Sweeper 04/14/2022 2:44 PM Signed Left voicemail letting patient know has sent results to him via [facility]. Patient to call office with any questions Ashlyn Irving Cma Allergies As of Date: 04/14/2022 (No Known Allergies) Date Reviewed: 03/02/2022 Reviewed by: Donaldo Saxena PAINTER SIGN MAINTENANCE - Fully Assessed Reason for Visit: Results [95] Prescriptions as of 04/16/2022 - Tadalafil (CIALIS) 20 mg tab(s) Take 1 tablet by mouth as needed. 1-2 hours before sexual intercourse. - Tadalafil (CIALIS) 5 mg tablet Take 5 mg by mouth. - oxybutynin ER (DITROPAN XL) 10 mg 24 hr tablet Take 1 tablet by mouth once daily. - diphenhydramine HCl (BENADRYL ORAL) Take 25 mg by mouth daily at bedtime. - multivitamin/folic acid/zinc ([id number] ORAL) Take by mouth once daily. - mecobalamin (B12 ACTIVE ORAL) Take 1 tablet by mouth once daily. Problem List As Of Date 04/14/2022 Noted Resolved Ex-smoker [Z87.891] 04/27/2018 Well adult exam [Z00.00] 04/27/2018 Screen for colon cancer [Z12.11] 04/27/2018 Encounter for screening for diabetes mellitus [*04/27/2018 Screening for prostate cancer [Z12.5] 04/27/2018 Benign prostatic hyperplasia without lower urin*04/27/2018 Right lateral epicondylitis [M77.11] 04/27/2018 Family history of multiple myeloma [Z80.7] 12/03/2020 Family history of Parkinson's disease [Z82.0] 12/03/2020 Prostate cancer (HCC) [C61] 08/26/2021 ED (erectile dysfunction) [N52.9] 08/26/2021 Encounter Status:Closed by ASHLYN IRVING CMA on 04/16/22 [facility] CNNURSEon 04-08-2022 [facility] Nurse Visit (FAMPWS) -- GABE PAINTING ([id number]) 1960 M Date Time Provider Department 04/08/22 3:45 PM [facility] NURSE FAMPWS During your visit today, we recorded the following information about you: Marshall Harrison LPN 04/08/2022 3:58 PM Signed Patient presents for Shingrix vaccine. Denies any problems at this time. Tolerated injection well. Marshall Harrison LPN Referring Provider: SELF [200] Allergies As of Date: 04/08/2022 (No Known Allergies) Date Reviewed: 03/02/2022 Reviewed by: Donaldo Saxena LPN - Fully Assessed Reason for Visit: Imm/Inj [58] Primary Visit Diagnosis:Need for vaccination [Z23] Prescriptions as of 04/08/2022 - Tadalafil (CIALIS) 20 mg tab(s) Take 1 tablet by mouth as needed. 1-2 hours before sexual intercourse. - Tadalafil (CIALIS) 5 mg tablet Take 5 mg by mouth. - oxybutynin ER (DITROPAN XL) 10 mg 24 hr tablet Take 1 tablet by mouth once daily. - diphenhydramine HCl (BENADRYL ORAL) Take 25 mg by mouth daily at bedtime. - multivitamin/folic acid/zinc ([id number] ORAL) Take by mouth once daily. - mecobalamin (B12 ACTIVE ORAL) Take 1 tablet by mouth once daily. Problem List As Of Date 04/08/2022 Noted Resolved Ex-smoker [Z87.891] 04/27/2018 Well adult exam [Z00.00] 04/27/2018 Screen for colon cancer [Z12.11] 04/27/2018 Encounter for screening for diabetes mellitus [*04/27/2018 Screening for prostate cancer [Z12.5] 04/27/2018 Benign prostatic hyperplasia without lower urin*04/27/2018 Right lateral epicondylitis [M77.11] 04/27/2018 Family history of multiple myeloma [Z80.7] 12/03/2020 Family history of Parkinson's disease [Z82.0] 12/03/2020 Prostate cancer (HCC) [C61] 08/26/2021 ED (erectile dysfunction) [N52.9] 08/26/2021 Encounter Status:Closed by MARSHALL HARRISON LPN on 04/08/22 Normal [facility] Prostate specific Ag [Mass/Vol] ng/mL Normal <2.60 [facility] Comment on above: Order Comment: Speci men Type: BLOOD SPECIMEN Ordering Facility: [facility] Address: [address] [place] [address] Result Comment: Tota l PSA test methodology used is the Electrochemiluminescence Immunoassay by [employer]. Total PSA values by differing methodologies cannot be interchanged. Performed By: #### 2 857-1 #### [facility] CLIA [id number] [facility] [place] [id number] [facility] Tan 03-18-2022 [facility] Telephone (FAMWS) -- GABE PAINTING ([id number]) 1960 M Date Time Provider Department 03/18/22 [facility] During your visit today, we recorded the following information about you: Marshall Harrison LPN 03/18/2022 11:42 AM Signed Patient scheduled for nurse visit 03/29/22 to receive Shingrix vaccine. Please place order at this time. Marshall Kelsey MD 03/18/2022 4:04 PM Signed done Allergies As of Date: 03/18/2022 (No Known Allergies) Date Reviewed: 03/02/2022 Reviewed by: Donaldo Saxena LPN - Fully Assessed Reason for Visit: Orders [681] Primary Visit Diagnosis:Need for vaccination [Z23] Order(s):ZOSTER VACC RECOMBINANT,IM [[id number]] Order #: [id number] Prescriptions as of 03/18/2022 - Tadalafil (CIALIS) 20 mg tab(s) Take 1 tablet by mouth as needed. 1-2 hours before sexual intercourse. - Tadalafil (CIALIS) 5 mg tablet Take 5 mg by mouth. - oxybutynin ER (DITROPAN XL) 10 mg 24 hr tablet Take 1 tablet by mouth once daily. - diphenhydramine HCl (BENADRYL ORAL) Take 25 mg by mouth daily at bedtime. - multivitamin/folic acid/zinc (LETDLEIDSFMS-SF-QPPM ORAL) Take by mouth once daily. - mecobalamin (B12 ACTIVE ORAL) Take 1 tablet by mouth once daily. Problem List As Of Date 03/18/2022 Noted Resolved Ex-smoker [Z87.891] 04/27/2018 Well adult exam [Z00.00] 04/27/2018 Screen for colon cancer [Z12.11] 04/27/2018 Encounter for screening for diabetes mellitus [*04/27/2018 Screening for prostate cancer [Z12.5] 04/27/2018 Benign prostatic hyperplasia without lower urin*04/27/2018 Right lateral epicondylitis [M77.11] 04/27/2018 Family history of multiple myeloma [Z80.7] 12/03/2020 Family history of Parkinson's disease [Z82.0] 12/03/2020 Prostate cancer (HCC) [C61] 08/26/2021 ED (erectile dysfunction) [N52.9] 08/26/2021 Encounter Status:Closed by FORREST KELSEY on 03/18/22 [facility] CNOVjacinto 03-02-2022 CNOV Office Visit (FAMBriannaWS ) -- GABE PAINTING ([id number]) 1960 Date Time Provider Department 03/02/22 11:00 AM JEOVANY PETERSEN During your visit today, we recorded the following information about you: Temperature Pulse Respiration Blood pressure 97.2 degrees 72/minute 18/minute 118/86 Weight 73.5 kg Jeovany Petersen PA-C 03/02/2022 11:54 AM Signed Patient presents with: Sinus Problem: x 2 weeks 61 year old male with c/o URI sx over the last 14 days with Sore throat: Yes. Nasal congestion: Yes. Nasal drip: Yes. Sinus pain/ pressure: Yes. Headache Yes. Sinus h/a Body aches No. Ear pain: No. Cough: Yes. Production: No. Shortness of Breath: No. Wheezing: No. Fever: No. Tmax n/a. Hx asthma No. Hx pneumonia No. Smoker: No. OTC meds tried: OTC cold and sinus. And nyquil/dayquil. ACTIVE PROBLEM LIST Ex-Smoker Well Adult Exam Screen for Colon Cancer Encounter for Screening for Diabetes Mellitus Screening for Prostate Cancer Benign Prostatic Hyperplasia Without Lower Urinary Tract Symptoms Right Lateral Epicondylitis Family History of Multiple Myeloma Family History of Parkinson's Disease Prostate Cancer (Hcc) Ed (Erectile Dysfunction) Current Outpatient Medications Medication Sig Dispense Refill - Tadalafil (CIALIS) 20 mg tab(s) Take 1 tablet by mouth as needed. 1-2 hours before sexual intercourse. 30 tablet 5 - diphenhydramine HCl (BENADRYL ORAL) Take 25 mg by mouth daily at bedtime. - multivitamin/folic acid/zinc ([id number] ORAL) Take by mouth once daily. - Tadalafil (CIALIS) 5 mg tablet Take 5 mg by mouth. (Patient not taking: Reported on 03/02/2022 ) - oxybutynin ER (DITROPAN XL) 10 mg 24 hr tablet Take 1 tablet by mouth once daily. 30 tablet 3 - mecobalamin (B12 ACTIVE ORAL) Take 1 tablet by mouth once daily. (Patient not taking: Reported on 12/31/2021 ) No current facility-administered medications for this visit. ROS: SEE HPI OBJECTIVE: BP 118/86 (BP Site: Left Arm, BP Position: Sitting, BP Cuff Size: Large Adult) Pulse 72 Temp 36.2 ?C (97.2 ?F) Resp 18 Wt 73.5 kg (162 lb) BMI 26.15 kg/m? General appearance: Well appearing, alert, in no acute distress, well-hydrated, well nourished., Head: Normocephalic, no masses, lesions, tenderness or abnormalities; Ears: External ears normal, canals clear, TM's normal Nose/Sinuses: Nares normal, septum midline, mucosa normal, no drainage or sinus tenderness Oropharynx: Lips, mucosa, and tongue normal, teeth and gums normal, oropharynx normal Neck: Supple, no adenopathy; thyroid symmetric, normal size, no bruits Lungs: Lungs clear to auscultation. No wheezing, rhonchi, rales Heart: RRR without murmur, gallop, or rubs. No ectopy ASSESSMENT/PLAN: 1. Acute sinusitis, recurrence not specified, unspecified location - ICD9: 461.9, ICD10: J01.90 - Will begin treatment with Zithromax pack as directed - Supportive care with plenty of fluids, rest, and analgesia prn. - Follow up in one week if symptoms persist or worsen. Jeovany Petersen PA-C Referring Provider: SELF [200] Allergies As of Date: 03/02/2022 (No Known Allergies) Date Reviewed: 03/02/2022 Reviewed by: Donaldo Saxena LPN - Fully Assessed Reason for Visit: Sinus Problem [99] Cmt: x 2 weeks Primary Visit Diagnosis:Acute sinusitis, recurrence not specified, unspecified location [J01.90] Order(s):azithromycin (ZITHROMAX Z-CARLINE) 250 mg tabletTake 2 tablets day one, then, 1 tablet daily until gone.Disp: 6 tabletRfl: 0 Prescriptions as of 03/02/2022 - azithromycin (ZITHROMAX Z-CARLINE) 250 mg tablet Take 2 tablets day one, then, 1 tablet daily until gone. - Tadalafil (CIALIS) 20 mg tab(s) Take 1 tablet by mouth as needed. 1-2 hours before sexual intercourse. - Tadalafil (CIALIS) 5 mg tablet Take 5 mg by mouth. - oxybutynin ER (DITROPAN XL) 10 mg 24 hr tablet Take 1 tablet by mouth once daily. - diphenhydramine HCl (BENADRYL ORAL) Take 25 mg by mouth daily at bedtime. - multivitamin/folic acid/zinc (CYNEWANLPLKI-IS-ASNN ORAL) Take by mouth once daily. - mecobalamin (B12 ACTIVE ORAL) Take 1 tablet by mouth once daily. Problem List As Of Date 03/02/2022 Noted Resolved Ex-smoker [Z87.891] 04/27/2018 Well adult exam [Z00.00] 04/27/2018 Screen for colon cancer [Z12.11] 04/27/2018 Encounter for screening for diabetes mellitus [*04/27/2018 Screening for prostate cancer [Z12.5] 04/27/2018 Benign prostatic hyperplasia without lower urin*04/27/2018 Right lateral epicondylitis [M77.11] 04/27/2018 Family history of multiple myeloma [Z80.7] 12/03/2020 Family history of Parkinson's disease [Z82.0] 12/03/2020 Prostate cancer (HCC) [C61] 08/26/2021 ED (erectile dysfunction) [N52.9] 08/26/2021 Prescriptions ordered this encounter Disp Refills Start End AZITHROMYCIN 250 MG TABLET 6 ta* 0 03/02/2022 03/07/2022 (more content not included)... Normal [facility] CNOVon 12-31-2021 CNOV Office Visit (UROLMD ) -- GABE PAINTING ([id number]) 1960 M Date Time Provider Department 12/31/21 8:45 AM IVETH PIÑA URODON During your visit today, we recorded the following information about you: Weight Height 73.5 kg 1.676 m Iveth Piña DO 12/31/2021 9:50 AM Signed ?? [facility] LOCATION: [address] [place] [address] PATIENT PATIENT INFO: Gabe Painting 61 year old Chief Complaint: Prostate Cancer HPI S/P RARP with PLND 01/22/21. Doing well. Leaking much less, down to social continence - one liner. Using vacuum pump as well. Daily cialis 5 mg daily. 1-Duration: 2021 2-Location: prostate 3-Severity: N/A 4-Quality: Not applicable 5-Context: N/A 6-Timing: N/A 7-Modifying factors: No treatment prior to referral 8-Associated signs AND symptoms: no additional symptoms PATHOLOGY: FINAL DIAGNOSIS 1. Periprostatic tissue, excision (A) - Mature adipose tissue. - No lymph nodes present. 2. Prostate, radical prostatectomy (B) - Prostatic adenocarcinoma, Edward score 8 (4+4), grade group 4 with minute amount of extraprostatic extension of neoplasm. 3. Seminal vesicles, right and left, excision (B) - Negative for neoplasm. 4. Bilateral pelvic lymph nodes, excision (B) - Negative for neoplasm, 19 lymph nodes. JLM/adb 01/28/2021 COMMENT Margins of excision are free of neoplasm. Within the prostate, multiple foci of prostatic adenocarcinoma are present. The nodules of adenocarcinoma are of various Janki scores and are predominantly composed of Janki score 7 (4+3) and Edward score 7 (3+4). At 15 mm, there is a 13 mm in diameter nodule which demonstrates Janki score 8 (4+4). SYNOPTIC REPORT OF [facility] PATHOLOGIC FINDINGS PROSTATE, SEMINAL VESICLES AND BILATERAL PELVIC LYMPH NODES: ? ? ?PROSTATE GLAND: RADICAL PROSTATECTOMY Specimen Site: ? ? ? Prostatic structure Tumor Site: ? ? ? Prostate Areas of involvement: Right and left 3-18mm Principal area of involvement: bilateral Focality: multifocal Proportion (percentage) of prostate involved by tumor: 25% Procedure: ? ? ? Radical prostatectomy with pelvic lymph node dissection Prostate Size: ? ? ? Size: 4.5cm ? ? ? Size: 3.5cm ? ? ? Size: 3cm Prostate Weight: ? ? ? Weight: 37 g ?without seminal vesicle Lymph Node Sampling: ? ? ? Pelvic lymph node dissection Histologic Type: ? ? ? Adenocarcinoma (acinar, not otherwise specified) ? ? ? Primary Janki Pattern 4 ? ? ? Secondary Janki Pattern 4 ? ? ? Tertiary Pattern not applicable ? ? ? Total Edward Score: 8 % of 4 and/or 5: ? ? ? 91-100% % of 3: ? ? ? 1--10% New Grading System: ? ? ? Janki score 4+4=8; 3+5=8; 5+3=8: Grade Group 4 Intraductal Carcinoma: ? ? ? Not identified Cribriform Architecture: ? ? ? Present Tumor Quantitation: ? ? ? Percentage of prostate involved by tumor: 25% ? ? ? Tumor size (dominant nodule): Greatest dimension: 31 mm Extraprostatic Extension: ? ? ? Present, focal ? ? ? Present, focal site(s): right side at 12mm ? Degree max penetration: less than 0.5mm Urinary Bladder Neck Invasion (Microscopic): ? ? ? Urinary bladder neck invasion microscopic not identified Seminal Vesicle Invasion: ? ? ? Not identified Margins: ? ? ? Margins uninvolved by invasive carcinoma Treatment Effect on Carcinoma: ? ? ? Not identified Lymphovascular Invasion: ? ? ? Present Pathologic Stage Classification (pTNM,AJCC 8th ed) TNM Descriptors: ? ? ? Not applicable Primary Tumor (pT): ? ? ? pT3a: Extraprostatic extension (unilateral or bilateral) or microscopic invasion of bladder neck Regional Lymph Nodes (pN): ? ? ? pN0: No positive regional nodes ? Number of regional lymph nodes involved: 0 ? ? ? Number of regional lymph nodes examined: 19 Distant Metastasis (pM): ? ? ? Distant Metastasis (pM) Not applicable/Not confirmed pathologically in this case Curator Tumor Block: ? ? ? Specify: B35 LAB: WBC (k/uL) Date Value 08/26/2021 5.86 RBC (m/uL) Date Value 08/26/2021 5.26 Hemoglobin (g/dL) Date Value 08/26/2021 16.2 Hematocrit (%) Date Value 08/26/2021 48.3 MCV (fL) Date Value 08/26/2021 91.8 MCH (pG) Date Value 08/26/2021 30.8 MCHC (g/dL) Date Value 08/26/2021 33.5 RDW-CV (%) Date Value 08/26/2021 13.2 Platelet Count (k/uL) Date Value 08/26/2021 198 MPV (fL) Date Value 08/26/2021 11.0 Neut% (%) Date Value 08/26/2021 64.5 Lymph% (%) Date Value 08/26/2021 23.5 [place]% (%) Date Value 08/26/2021 8.2 Eosin% (%) Date Value 08/26/2021 3.1 Baso% (%) Date Value 08/26/2021 0.7 Abs Neut (ANC) (k/uL) Date Value 08/26/2021 3.76 Abs [place] (k/uL) Date Value 08/26/2021 0.48 Abs Eosin (k/uL) Da (more content not included)... Normal [facility] Tan 12-28-2021 HANNAH Telephone (UROD) -- GABE PAINTING ([id number]) 1960 M Date Time Provider Department 12/28/21 IVETH PIÑA During your visit today, we recorded the following information about you: Arlen Guidry RN 12/28/2021 11:13 AM Signed ----- Message from Iveth Piña DO sent at 12/28/2021 9:45 AM EST ----- PSA 0 Arlen Guidry RN 12/28/2021 11:16 AM Signed Patient made aware of message. Aware of plan of care. No other questions. Encounter closed. Will see you for 6 month follow up. Allergies As of Date: 12/28/2021 (No Known Allergies) Date Reviewed: 11/09/2021 Reviewed by: Caterina Arzate RN - Fully Assessed Reason for Visit: Results [95] Prescriptions as of 12/28/2021 - Tadalafil (CIALIS) 5 mg tablet Take 5 mg by mouth. - oxybutynin ER (DITROPAN XL) 10 mg 24 hr tablet Take 1 tablet by mouth once daily. - diphenhydramine HCl (BENADRYL ORAL) Take 25 mg by mouth daily at bedtime. - multivitamin/folic acid/zinc (CRCGSTYJKRTC-ZQ-PGRN ORAL) Take by mouth once daily. - mecobalamin (B12 ACTIVE ORAL) Take 1 tablet by mouth once daily. Problem List As Of Date 12/28/2021 Noted Resolved Ex-smoker [Z87.891] 04/27/2018 Well adult exam [Z00.00] 04/27/2018 Screen for colon cancer [Z12.11] 04/27/2018 Encounter for screening for diabetes mellitus [*04/27/2018 Screening for prostate cancer [Z12.5] 04/27/2018 Benign prostatic hyperplasia without lower urin*04/27/2018 Right lateral epicondylitis [M77.11] 04/27/2018 Family history of multiple myeloma [Z80.7] 12/03/2020 Family history of Parkinson's disease [Z82.0] 12/03/2020 Prostate cancer (HCC) [C61] 08/26/2021 ED (erectile dysfunction) [N52.9] 08/26/2021 Encounter Status:Closed by ARLEN GUIDRY RN on 12/28/21 Normal [facility] XR CHEST 2V FRONTAL/LATon XR CHEST 2V FRONTAL/LAT Final Report DATE OF EXAM: Jan 08 2021 8:45AM AWX [id number] - XR CHEST 2V FRONTAL/LAT / PROCEDURE REASON: Prostate CA (HCC) Physician Interpretation EXAMINATION: CHEST RADIOGRAPH (2 VIEW FRONTAL & LATERAL) CLINICAL HISTORY: Prostate CA (HCC) MQ: [id number] EXAM DATE/TIME: 01/08/2021 8:45 AM COMPARISON: Chest radiographs 05/09/2017. RESULT: Lines, tubes, and devices: None. Lungs and pleura: No consolidation. No lung mass. No pleural effusion. No pneumothorax. Cardiomediastinal silhouette: Normal cardiomediastinal silhouette. Bones and soft tissues: Unremarkable. IMPRESSION: No acute radiographic abnormality. Consulting Intern: PSCLuis Transcribe Date/Time: Jan 08 2021 9:07A Dictated by : FORREST MANCIA MD This examination was interpreted and the report reviewed and electronically signed by: FORREST MANCIA MD on Jan 08 2021 9:09AM EST Normal [facility] Emergency Room Note on 05-04-2018 [place] [facility] Note Normal [facility] ([place]) Pat Eduon 05-04-2018 Pat Edu Normal [facility] ([place]) Patient Summary Documentson 05-04-2018 Patient Summary Documents Normal [facility] ([place]) Vital Signs Date Time Vital Sign Value Performing Clinician Jammiei mookie 06-30-2023 10:27-0400 Body height 167.[address] Liz Salinas Work Phone: [facility] 06-30-2023 10:27-0400 Body mass index (BMI) [Ratio] 24.3 kg/m2 Dr. Liz Salinas Work Phone: [facility] 06-30-2023 10:27-0400 Body temperature 97.4 [degF] Dr. Liz Salinas Work Phone: [facility] 06-30-2023 10:27-0400 Body weight 68.[address] Liz Salinas Work Phone: [facility] 06-30-2023 10:27-0400 Diastolic blood pressure 80 mm[Hg] Dr. Liz Salinas Work Phone: [facility] 06-30-2023 10:27-0400 Heart rate 56 /min Dr. Lzi Salinas Work Phone: [facility] 06-30-2023 10:27-0400 Respiratory rate 16 /min Dr. Liz Salinas Work Phone: [facility] 06-30-2023 10:27-0400 SaO2% (BldA) [Mass fraction] 99 % Dr. Liz Salinas Work Phone: [facility] 06-30-2023 10:27-0400 Systolic blood pressure 120 mm[Hg] Dr. Liz Salinas Work Phone: [facility] 03-02-2022 11:02-0400 Body temperature 97.2 [degF] Jeovany Petersen PA-C Work Phone: [facility] 03-02-2022 11:02-0400 Body weight 73.48 kg Jeovany Petersen PA-C Work Phone: [facility] 03-02-2022 11:02-0400 Diastolic blood pressure 86 mm[Hg] Jeovany Petersen PA-C Work Phone: [facility] 03-02-2022 11:02-0400 Heart rate 72 /min Jeovany Petersen PA-C Work Phone: [facility] 03-02-2022 11:02-0400 Respiratory rate 18 /min Jeovany Petersen PA-C Work Phone: [facility] 03-02-2022 11:02-0400 Systolic blood pressure 118 mm[Hg] Jeovany Petersen PA-C Work Phone: [facility] Encounters Encounter Date Encounter Type Care Provider Facility Start: 08-06-2024 Encounter for genera l adult medical examination without abnormal findings Claudia Ferullo [facility] Start: 07-10-2024 End: 07-10-2024 ambulatory Liz Salinas Facility[facility] Start: 07-10-2024 End: 07-10-2024 ambulatory Liz Winchesterlay Facility:[facility] Start: 02-07-2024 End: 02-07-2024 ambulatory Liz Salinas Facility:[facility] Start: 01-20-2024 End: 01-20-2024 ambulatory [facility] Work Phone: Start: 01-20-2024 End: 01-20-2024 Patient encounter procedure [facility] Start: 01-20-2024 End: 01-20-2024 ambulatory Liz Winchesterlay Facility:[facility] Start: 06-30-2023 End: 06-30-[address] Liz Salinas Work Phone: [facility] Work Phone: Start: 06-30-2023 End: 06-30-[address] Liz Salinas Work Phone: [facility] Work Phone: Start: 12-23-2022 ambulatory Iveth jones DO Work Phone: Urology Comment on above: PSA Testing Start: 12-22-2022 End: 12-23-2022 ambulatory FORREST KELSEY Facility:[facility] Start: 09-27-2022 Telephone encounter Iveth ledbetter DO Work Phone: [facility] Comment on above: Results Start: 09-20-2022 End: 09-20-2022 ambulatory FORREST KELSEY Facility:[facility] Start: 06-29-2022 Telephone encounter Iveth ledbetter DO Work Phone: [facility] Comment on above: Results Start: 06-21-2022 End: 06-21-2022 ambulatory FORREST KELSEY Facility:[facility] Start: 04-14-2022 Telephone encounter Iveth ledbetter DO Work Phone: Urology Comment on above: Results Start: 04-08-2022 End: 04-08-2022 ambulatory [facility] FARNAZ Facility:[facility] Start: 04-08-2022 End: 04-08-2022 Nursing evaluation of patient and report Mi Nurse Work Phone: [facility] [place] Comment on above: Need for vaccination (Primary Dx) Start: 03-18-2022 Telephone encounter Forrest Kelsey MD Work Phone: [facility] [place] Comment on above: Orders Start: 03-02-2022 End: 03-02-2022 ambulatory JEOVANY PETERSEN Facility:[facility] Start: 03-02-2022 End: 03-02-2022 Patient encounter procedure Jeovany Petersen PA-C Work Phone: [facility] [place] Comment on above: Acute sinusitis, rec urrence not specified, unspecified location (Primary Dx) Start: 12-31-2021 End: 12-31-2021 ambulatory CECILIORANULFO LANGSTONNAN Facility:[facility] Start: 08-26-2021 Patient encounter status Juvenal Petersen PA-C Work Phone: [facility] Work Phone: Start: 05-04-2018 End: 05-04-2018 Emergency department patient visit BASILIO GONZALEZ Facility:B Procedures Date Procedure Procedure Detail Performing Clinician Start: 11-09-2021 Colonoscopy Jeovany ferro PA-C Work Phone: Start: 12-02-2020 Adult depression scr eening assessment Jeovany Petersen PA-C Work Phone: Plan of Treatment Date Care Activity Detail Author Start: 11-09-2031 Colonoscopy COLONOSCOPY [facility] Start: 11-09-2031 COLORECTAL CANCER SCREENING COLORECTAL CANCER SCREENING [facility] Start: 04-27-2028 Urine microalbumin profile DTAP,TDAP,TD (2 - Td or Tdap) [facility] Start: 12-23-2027 PROSTATE CANCER SCREENING DISCUSSION PROSTATE CANCER SCREENING DISCUSSION [facility] Start: 09-20-2027 PROSTATE CANCER SCREENING DISCUSSION PROSTATE CANCER SCREENING DISCUSSION [facility] Start: 06-21-2027 PROSTATE CANCER SCREENING DISCUSSION PROSTATE CANCER SCREENING DISCUSSION [facility] Start: 04-08-2027 PROSTATE CANCER SCREENING DISCUSSION PROSTATE CANCER SCREENING DISCUSSION [facility] Start: 12-21-2026 PROSTATE CANCER SCREENING DISCUSSION PROSTATE CANCER SCREENING DISCUSSION [facility] Start: 08-26-2026 LIPID SCREEN LIPID SCREEN [facility] Start: 08-26-2024 DIABETES SCREEN DIABETES SCREEN [facility] Start: 10-24-2022 DEPRESSION ASSESSMENT DEPRESSION ASS ESSMENT [facility] Start: 02-15-2022 SHINGRIX VACCINE (2 of 2) SHINGRIX VACCINE (2 of 2) [facility] Start: 02-04-2022 COVID-19 VACCINE (4 - Booster for Moderna series) COVID-19 VACCINE (4 - Booster for Moderna series) [facility] Start: 12-02-2021 Adult depression screening assessment DEPRESSION SCREENING [facility] Start: 12-01-2021 COVID-19 VACCINE (4 - Booster for Moderna series) COVID-19 VACCINE (4 - Booster for Moderna series) [facility] Start: 10-24-2021 DEPRESSION ASSESSMENT DEPRESSION ASS ESSMENT [facility] Start: 2006 COLOGUARD (FIT-DNA) COLOGUARD (FIT-D NA) [facility] Start: [address] COLONOGRAPHY [facility] Start: 2006 FECAL OCCULT BLOOD FECAL OCCULT BLOO D [facility] Start: 2006 SIGMOIDOSCOPY SIGMOIDOSCOPY [facility] Start: 1967 PNEUMOCOCCAL (1 - PCV) PNEUMOCOCCAL (1 - PCV) [facility] Hzv zoster vacc recombinant adjuvanted im njx ZOSTER VACC RECOMBINANT,IM Immunization/Injection Routine Need for vaccination Ordered: 03/18/2022 [facility] Work Phone: Comment on above: Ordered: 03/18/2022 [facility] Immunizations Immunization Date Immunization Notes Care Provider Dewayne gibbons 04-08-2022 zoster vaccine recombinant Mi Nurse Work Phone: [facility] Work Phone: 12-21-2021 zoster vaccine recombinant Jeovany Petersen PA-C Work Phone: [facility] Work Phone: 10-06-2021 Covid (Moderna) Dr. Liz nichols Work Phone: [facility] 08-26-2021 influenza, injectabl e, quadrivalent, contains preservative Jeovany Petersen PA-C Work Phone: [facility] 08-26-2021 influenza, injectabl e, quadrivalent, preservative free Dr. Liz Salinas Work Phone: [facility] 03-13-2021 Covid (Moderna) Dr. Liz nichols Work Phone: [facility] 02-13-2021 Covid (Moderna) Dr. Liz nichols Work Phone: [facility] 04-27-2018 tetanus toxoid, redu delmis diphtheria toxoid, and acellular pertussis vaccine, adsorbed Jeovany Petersen PA-C Work Phone: [facility] Payers Date Payer Category Payer Self-pay 2024 Unknown [id number] 2022 Unknown [id number] 2021 Unknown MMO MMO [employer] [id number] 2021-Present [phone] [address] [place] [address] O [id number] 2021 Unknown [id number] 2021 Unknown [id number] 2018 Unknown [id number] Unknown [id number] Unknown [id number] Unknown [id number] Unknown [id number] Social History Date Type Detail Facility Start: 05-09-2017 End: 01-06-2021 Tobacco smoking status NHIS Ex-smoker [facility] History of tobacco use Cigarette Smoker [facility] Start: 05-09-2017 End: 01-06-2021 Tobacco use and exposure Former smokeless tobacco user [facility] History of tobacco use Chews Tobacco [facility] Start: 03-02-2022 Alcohol intake Current drinke r of alcohol (finding) [facility] Start: 12-02-2020 History SDOH Alcohol Frequency 4 [facility] Start: 12-02-2020 End: 08-20-2021 History SDOH Alcohol Std Drinks 2 [facility] Start: 12-02-2020 History SDOH Alcohol Binge 3 [facility] Start: 05-09-2017 History SDOH Alcohol Comment rare [facility] Start: 12-02-2020 History SDOH Social Connections Phone 5 [facility] Start: 12-02-2020 End: 08-20-2021 History SDOH Social Connections Membership 1 [facility] Start: 12-02-2020 History SDOH Physica l Activity MPS 9 [facility] Start: 12-02-2020 Education 15 [facility] Start: 01-06-2021 Tobacco Comment quit 30 years ago smoked a few years as a teen [facility] Start: 1960 Sex Assigned At Male [facility] Start: 02-20-2022 End: 03-02-2022 Exposure to SARS-CoV-2 (event) Not sure [facility] History of tobacco use Current smoker [facility] Start: 06-30-2023 Tobacco smoking stat us ORIS Unknown if ever smoked [facility] Clinical Notes 12-31-2021 to 01-03-2023 Telephone Encounter - Iveth Piña DO - 01/03/2023 11:40 AM EDTTelephone Encounter - Jeannette Horta [facility] - 09/27/2022 2:41 PM ESTTelephone Encounter - Jeannette Horta [facility] - 09/27/2022 2:41 PM EST Note Date & Type Note Facility 01-03-2023 Miscellaneous Notes Yes - PSA can be every 6 months documented in this encounter [facility] 09-27-2022 Miscellaneous Notes Called patient with PSA results. Jeannette Horta Cma ----- Message from Iveth Piña DO sent at 09/27/2022 1:15 PM EST ----- PSA 0 documented in this encounter [facility] 06-29-2022 Miscellaneous Notes Patient informed Via [facility]. Bharat Sena Ma ----- Message from Iveth iPña DO sent at 06/27/2022 8:09 PM EDT ----- PSA 0 or undetectable documented in this encounter [facility] 04-14-2022 Miscellaneous Notes Left voicemail letting patient know has sent results to him via [facility] [employer]. Patient to call office with any questions Ashlyn Irving Cma ----- Message from Iveth Piña DO sent at 04/14/2022 2:37 PM EDT ----- PSA 0 documented in this encounter [facility] 04-08-2022 Note HNO ID: [id number] Author: Marshall Harrison LPN Service: ? Author Type: ? Type: Progress Notes Filed: 04/08/2022 3:58 PM Note Text: Patient presents for Shingrix vaccine. Denies any problems at this time. Tolerated injection well. Marshall Harrison LPN [facility] 04-08-2022 History of Presen t illness Narrative Patient presents for Shingrix vaccine. Denies any problems at this time. Tolerated injection well. Marshall Harrison LPN documented in this encounter [facility] 03-18-2022 Miscellaneous Notes done Patient scheduled for nurse visit 03/29/22 to receive Shingrix vaccine. Please place order at this time. Marshall Harrison LPN documented in this encounter [facility] 03-02-2022 Note HNO ID: [id number] Author: Jeovany Petersen PA-C Service: ? Author Type: Physician Alliances Consultant Type: Progress Notes Filed: 03/02/2022 11:54 AM Note Text: Patient presents with: Sinus Problem: x 2 weeks 61 year old male with c/o URI sx over the last 14 days with Sore throat: Yes. Nasal congestion: Yes. Nasal drip: Yes. Sinus pain/ pressure: Yes. Headache Yes. Sinus h/a Body aches No. Ear pain: No. Cough: Yes. Production: No. Shortness of Breath: No. Wheezing: No. Fever: No. Tmax n/a. Hx asthma No. Hx pneumonia No. Smoker: No. OTC meds tried: OTC cold and sinus. And nyquil/dayquil. ACTIVE PROBLEM LIST Ex-Smoker Well Adult Exam Screen for Colon Cancer Encounter for Screening for Diabetes Mellitus Screening for Prostate Cancer Benign Prostatic Hyperplasia Without Lower Urinary Tract Symptoms Right Lateral Epicondylitis Family History of Multiple Myeloma Family History of Parkinson's Disease Prostate Cancer (Hcc) Ed (Erectile Dysfunction) Current Outpatient Medications Medication Sig Dispense Refill - Tadalafil (CIALIS) 20 mg tab(s) Take 1 tablet by mouth as needed. 1-2 hours before sexual intercourse. 30 tablet 5 - diphenhydramine HCl (BENADRYL ORAL) Take 25 mg by mouth daily at bedtime. - multivitamin/folic acid/zinc ([id number]-[id number] ORAL) Take by mouth once daily. - Tadalafil (CIALIS) 5 mg tablet Take 5 mg by mouth. (Patient not taking: Reported on 03/02/2022 ) - oxybutynin ER (DITROPAN XL) 10 mg 24 hr tablet Take 1 tablet by mouth once daily. 30 tablet 3 - mecobalamin (B12 ACTIVE ORAL) Take 1 tablet by mouth once daily. (Patient not taking: Reported on 12/31/2021 ) No current facility-administered medications for this visit. ROS: SEE HPI OBJECTIVE: BP 118/86 (BP Site: Left Arm, BP Position: Sitting, BP Cuff Size: Large Adult) Pulse 72 Temp 36.2 ?C (97.2 ?F) Resp 18 Wt 73.5 kg (162 lb) BMI 26.15 kg/m? General appearance: Well appearing, alert, in no acute distress, well-hydrated, well nourished., Head: Normocephalic, no masses, lesions, tenderness or abnormalities; Ears: External ears normal, canals clear, TM's normal Nose/Sinuses: Nares normal, septum midline, mucosa normal, no drainage or sinus tenderness Oropharynx: Lips, mucosa, and tongue normal, teeth and gums normal, oropharynx normal Neck: Supple, no adenopathy; thyroid symmetric, normal size, no bruits Lungs: Lungs clear to auscultation. No wheezing, rhonchi, rales Heart: RRR without murmur, gallop, or rubs. No ectopy ASSESSMENT/PLAN: 1. Acute sinusitis, recurrence not specified, unspecified location - ICD9: 461.9, ICD10: J01.90 - Will begin treatment with Zithromax pack as directed - Supportive care with plenty of fluids, rest, and analgesia prn. - Follow up in one week if symptoms persist or worsen. Jeovany Petersen PA-C [facility] 05-10-2022 History of Presen t illness Narrative Patient presents with: Sinus Problem: x 2 weeks 61 year old male with c/o URI sx over the last 14 days with Sore throat: Yes. Nasal congestion: Yes. Nasal drip: Yes. Sinus pain/ pressure: Yes. Headache Yes. Sinus h/a Body aches No. Ear pain: No. Cough: Yes. Production: No. Shortness of Breath: No. Wheezing: No. Fever: No. Tmax n/a. Hx asthma No. Hx pneumonia No. Smoker: No. OTC meds tried: OTC cold and sinus. And nyquil/dayquil. ACTIVE PROBLEM LIST Ex-Smoker Well Adult Exam Screen for Colon Cancer Encounter for Screening for Diabetes Mellitus Screening for Prostate Cancer Benign Prostatic Hyperplasia Without Lower Urinary Tract Symptoms Right Lateral Epicondylitis Family History of Multiple Myeloma Family History of Parkinson's Disease Prostate Cancer (Hcc) Ed (Erectile Dysfunction) Current Outpatient Medications Medication Sig Dispense Refill Tadalafil (CIALIS) 20 mg tab(s) Take 1 tablet by mouth as needed. 1-2 hours before sexual intercourse. 30 tablet 5 diphenhydramine HCl (BENADRYL ORAL) Take 25 mg by mouth daily at bedtime. multivitamin/folic acid/zinc ([id number]-DU-STEZ ORAL) Take by mouth once daily. Tadalafil (CIALIS) 5 mg tablet Take 5 mg by mouth. (Patient not taking: Reported on 03/02/2022 ) oxybutynin ER (DITROPAN XL) 10 mg 24 hr tablet Take 1 tablet by mouth once daily. 30 tablet 3 mecobalamin (B12 ACTIVE ORAL) Take 1 tablet by mouth once daily. (Patient not taking: Reported on 12/31/2021 ) No current facility-administered medications for this visit. ROS: SEE HPI OBJECTIVE: BP 118/86 (BP Site: Left Arm, BP Position: Sitting, BP Cuff Size: Large Adult) Pulse 72 Temp 36.2 C (97.2 F) Resp 18 Wt 73.5 kg (162 lb) BMI 26.15 kg/m General appearance: Well appearing, alert, in no acute distress, well-hydrated, well nourished., Head: Normocephalic, no masses, lesions, tenderness or abnormalities; Ears: External ears normal, canals clear, TM's normal Nose/Sinuses: Nares normal, septum midline, mucosa normal, no drainage or sinus tenderness Oropharynx: Lips, mucosa, and tongue normal, teeth and gums normal, oropharynx normal Neck: Supple, no adenopathy; thyroid symmetric, normal size, no bruits Lungs: Lungs clear to auscultation. No wheezing, rhonchi, rales Heart: RRR without murmur, gallop, or rubs. No ectopy ASSESSMENT/PLAN: 1. Acute sinusitis, recurrence not specified, unspecified location - ICD9: 461.9, ICD10: J01.90 - Will begin treatment with Zithromax pack as directed - Supportive care with plenty of fluids, rest, and analgesia prn. - Follow up in one week if symptoms persist or worsen. Jeovany Petersen PA-C documented in this encounter [facility] 12-31-2021 Note HNO ID: [id number] Author: Iveth Piña, DO Service: ? Author Type: Physician Type: Progress Notes Filed: 12/31/2021 9:50 AM Note Text: ?? [facility] LOCATION: [address] [place] [address] ESTABLISHED PATIENT PATIENT INFO: Gabe Painting 61 year old Chief Complaint: Prostate Cancer HPI S/P RARP with PLND 01/22/21. Doing well. Leaking much less, down to social continence - one liner. Using vacuum pump as well. Daily cialis 5 mg daily. 1-Duration: 2021 2-Location: prostate 3-Severity: N/A 4-Quality: Not applicable 5-Context: N/A 6-Timing: N/A 7-Modifying factors: No treatment prior to referral 8-Associated signs AND symptoms: no additional symptoms PATHOLOGY: FINAL DIAGNOSIS 1. Periprostatic tissue, excision (A) - Mature adipose tissue. - No lymph nodes present. 2. Prostate, radical prostatectomy (B) - Prostatic adenocarcinoma, Janki score 8 (4+4), grade group 4 with minute amount of extraprostatic extension of neoplasm. 3. Seminal vesicles, right and left, excision (B) - Negative for neoplasm. 4. Bilateral pelvic lymph nodes, excision (B) - Negative for neoplasm, 19 lymph nodes. JLM/adb 01/28/2021 COMMENT Margins of excision are free of neoplasm. Within the prostate, multiple foci of prostatic adenocarcinoma are present. The nodules of adenocarcinoma are of various Edward scores and are predominantly composed of Edward score 7 (4+3) and Edward score 7 (3+4). At 15 mm, there is a 13 mm in diameter nodule which demonstrates Janki score 8 (4+4). SYNOPTIC REPORT OF [facility] F[facility]INGS PROSTATE, SEMINAL VESICLES AND BILATERAL PELVIC LYMPH NODES: ? ? ?PROSTATE GLAND: RADICAL PROSTATECTOMY Specimen Site: ? ? ? Prostatic structure Tumor Site: ? ? ? Prostate Areas of involvement: Right and left 3-18mm Principal area of involvement: bilateral Focality: multifocal Proportion (percentage) of prostate involved by tumor: 25% Procedure: ? ? ? Radical prostatectomy with pelvic lymph node dissection Prostate Size: ? ? ? Size: 4.5cm ? ? ? Size: 3.5cm ? ? ? Size: 3cm Prostate Weight: ? ? ? Weight: 37 g ?without seminal vesicle Lymph Node Sampling: ? ? ? Pelvic lymph node dissection Histologic Type: ? ? ? Adenocarcinoma (acinar, not otherwise specified) ? ? ? Primary Janki Pattern 4 ? ? ? Secondary Janki Pattern 4 ? ? ? Tertiary Pattern not applicable ? ? ? Total Edward Score: 8 % of 4 and/or 5: ? ? ? 91-100% % of 3: ? ? ? 1--10% New Grading System: ? ? ? Edward score 4+4=8; 3+5=8; 5+3=8: Grade Group 4 Intraductal Carcinoma: ? ? ? Not identified Cribriform Architecture: ? ? ? Present Tumor Quantitation: ? ? ? Percentage of prostate involved by tumor: 25% ? ? ? Tumor size (dominant nodule): Greatest dimension: 31 mm Extraprostatic Extension: ? ? ? Present, focal ? ? ? Present, focal site(s): right side at 12mm ? Degree max penetration: less than 0.5mm Urinary Bladder Neck Invasion (Microscopic): ? ? ? Urinary bladder neck invasion microscopic not identified Seminal Vesicle Invasion: ? ? ? Not identified Margins: ? ? ? Margins uninvolved by invasive carcinoma Treatment Effect on Carcinoma: ? ? ? Not identified Lymphovascular Invasion: ? ? ? Present Pathologic Stage Classification (pTNM,AJCC 8th ed) TNM Descriptors: ? ? ? Not applicable Primary Tumor (pT): ? ? ? pT3a: Extraprostatic extension (unilateral or bilateral) or microscopic invasion of bladder neck Regional Lymph Nodes (pN): ? ? ? pN0: No positive regional nodes ? Number of regional lymph nodes involved: 0 ? ? ? Number of regional lymph nodes examined: 19 Distant Metastasis (pM): ? ? ? Distant Metastasis (pM) Not applicable/Not confirmed pathologically in this case Curator Tumor Block: ? ? ? Specify: B35 LAB: WBC (k/uL) Date Value 08/26/2021 5.86 RBC (m/uL) Date Value 08/26/2021 5.26 Hemoglobin (g/dL) Date Value 08/26/2021 16.2 Hematocrit (%) Date Value 08/26/2021 48.3 MCV (fL) Date Value 08/26/2021 91.8 MCH (pG) Date Value 08/26/2021 30.8 MCHC (g/dL) Date Value 08/26/2021 33.5 RDW-CV (%) Date Value 08/26/2021 13.2 Platelet Count (k/uL) Date Value 08/26/2021 198 MPV (fL) Date Value 08/26/2021 11.0 Neut% (%) Date Value 08/26/2021 64.5 Lymph% (%) Date Value 08/26/2021 23.5 [place]% (%) Date Value 08/26/2021 8.2 Eosin% (%) Date Value 08/26/2021 3.1 Baso% (%) Date Value 08/26/2021 0.7 Abs Neut (ANC) (k/uL) Date Value 08/26/2021 3.76 Abs [place] (k/uL) Date Value 08/26/2021 0.48 Abs Eosin (k/uL) Date Value 08/26/2021 0.18 Abs Baso (k/uL) Date Value 08/26/2021 0.04 Creatinine Date Value Ref Range Status 01/08/2021 0.89 0.73 - 1.22 mg/dL Final 12/03/2020 0.91 0.73 - 1.22 mg/dL Final 05/10/2017 0.90 (more content not included)... [facility] Evaluation note Diagnosis Acute sinusitis, recurrence not specified, unspecified location- Primary documented in this encounter [facility] note* Diagnosis Need for vaccination- Primary Need for prophylactic vaccination and inoculation against unspecified single disease documented in this encounter [facility] note* Diagnosis Need for vaccination- Primary Need for prophylactic vaccination and inoculation against unspecified single disease documented in this encounter [facility] noteNo assessment information availableWTriHealth [facility] Work Phone: Summary Purpose Family History No Family History Records Found Relationship Condition Age at Onset Recorded Date/T shara mother Malignant neoplasm Unknown brother Malignant neoplasm Unknown father Malignant neoplasm Unknown grandmother Diabetes mellitus Unknown uncle Diabetes mellitus Unknown Advance Directives No Advanced Directives Records FoundDocuments on File Type Date Recorded 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 Advance Directive(s) 11/09/2021 8:40 AM Advance Directive(s) 01/22/2021 6:12 AM Chief Complaint and Reason for Visit Chief Complaint 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 - HAS PP W Additional Source Comments (unrecognized sect ion and content) No Status Records FoundNo Status Records FoundNo Status Records FoundNo Status Records FoundNo Status Records Found INFORMATION SOURCE (unrecogn ized section and content) DATE CREATED AUTHOR 05/05/2018 [facility] DATE CREATED AUTHOR AUTHOR'S ORGANIZ ATION 07/23/2021 [facility] DATE CREATED AUTHOR AUTHOR'S ORGANIZ ATION 09/28/2022 [facility] DATE CREATED AUTHOR AUTHOR'S ORGANIZ ATION 12/24/2022 [facility] DATE CREATED AUTHOR AUTHOR'S ORGANIZ ATION 08/08/2024 [facility] Source Comments (unrecognize d section and content) In the event this informatio n is protected by the Federal Confidentiality of Alcohol and Drug Abuse Patient Records regulations: The Federal rules restrict any use of the information to criminally investigate or prosecute any alcohol or drug abuse patient.[facility] the event this information is protected by the Federal Confidentiality of Alcohol and Drug Abuse Patient Records regulations: The Federal rules restrict any use of the information to criminally investigate or prosecute any alcohol or drug abuse patient.[facility] Center[facility] the event this information is protected by the Federal Confidentiality of Alcohol and Drug Abuse Patient Records regulations: The Federal rules restrict any use of the information to criminally investigate or prosecute any alcohol or drug abuse patient.[facility] Center[facility] the event this information is protected by the Federal Confidentiality of Alcohol and Drug Abuse Patient Records regulations: The Federal rules restrict any use of the information to criminally investigate or prosecute any alcohol or drug abuse patient.[facility] Center[facility] the event this information is protected by the Federal Confidentiality of Alcohol and Drug Abuse Patient Records regulations: The Federal rules restrict any use of the information to criminally investigate or prosecute any alcohol or drug abuse patient.[facility] CenterIn the event this information is protected by the Federal Confidentiality of Alcohol and Drug Abuse Patient Records regulations: The Federal rules restrict any use of the information to criminally investigate or prosecute any alcohol or drug abuse patient.[facility] CenterIn the event this information is protected by the Federal Confidentiality of Alcohol and Drug Abuse Patient Records regulations: The Federal rules restrict any use of the information to criminally investigate or prosecute any alcohol or drug abuse patient.[facility] Reason for Visit (unrecogniz ed section and content) Reason Comments Sinus Problem x 2 weeks Reason Comments Orders Reason Comments Imm/Inj Reason Comments Results Care Teams (unrecognized sec tion and content) 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 Relationship Specialty Start Date End Date Forrest Kelsey MD [address] [place], [place] [id number] PCP - General Family Practice 04/27/18 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 Relationship Specialty Start Date End Date Forrest Kelsey MD [address] [place] [address] PCP - General Family Practice 04/27/18 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 Relationship Specialty Start Date End Date Forrest Kelsey MD [address] [place] [address] PCP - General Family Practice 04/27/18 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 Liz Salinas MD Attending Provider Active Team Status: Active Member Role Status Dates Dr. Liz Salinas MD Primary Care Provider Active Team Status: Inactive Member Role Status Dates Dr. Liz Salinas MD [facility] Active Goals (unrecognized section and content) Goals may be documented in a n alternate sectionGoals may be documented in an alternate section FOR RECORDS PERTAINING TO PATIENTS WHO ARE OR HAVE BEEN ENROLLED IN A CHEMICAL DEPENDENCY/SUBSTANCEABUSE PROGRAM, SOME INFORMATION MAY BE OMITTED. This clinical summary was aggregated from multiple sources. Caution should be exercised in using it in the provision of clinical care. This summary normalizes information from multiple sources, and as a consequence, information in this document may materially change the coding, format and clinical context of patient data. In addition, data may be omitted in some cases. CLINICAL DECISIONS SHOULD BE BASED ON THE PRIMARY CLINICAL RECORDS. [facility] [employer] [facility]. provides no warranty or guarantee of the accuracy or completeness of information in this document.
[2025-07-16 12:51] LABS: Hematocrit 42.1 % (40-54); Hemoglobin 14.6 g/dL (13.0-16.5); Immature Granulocytes Count 0.020 X10^3/uL (0.0-0.0); Mean Corp Hgb Conc 34.7 g/dL (32-36); Mean Corpuscular Volume 94.0 fL (80-94); Mean Platelet Vol. 10.9 fl (6.2-12.0); NRBC Flagged by Analyzer 0 % (0-5); Platelet Count 185 K/mm3 (150-450); RBC Distribution Width CV 13.5 % (11.6-14.6); RBC Distribution Width SD 47.0 fl (35.1-43.9); Red Blood Count 4.48 M/mm3 (4.6-6.2); White Blood Count 3.5 K/mm3 (4.4-11.0)
[2025-07-16 14:30] LABS: AST(SGOT) 26 U/L (<=37); Alanine Aminotransfer ALT/SGPT 20 U/L (<=46); Albumin, Serum 4.4 g/dL (3.4-4.8); Alkaline Phosphatase 68 U/L (40-129); Anion Gap 12 (5-15); BUN 15 mg/dL (4-19); BUN/Creat Ratio 13.6 RATIO (10-20); Calcium,Total 9.8 mg/dL (7.6-11.0); Carbon Dioxide 23.3 mmol/L (21.0-32.0); Chloride 105 mmol/L (98-108); Cholesterol 265 mg/dL (<=200); Globulin 2.5 g/dL (2.2-4.2); Glucose 98 mg/dL (70-99); Low Density Lipoprotein Calc. 178 mg/dL; PSA,Total- Diagnostic 0.12 ng/mL (0.00-4.00); Potassium 4.6 mmol/L (3.3-5.1); Triglycerides 156 mg/dL; Very Low Density Lipoprotein 31 mg/dL (5-40); Vitamin B12 309 pg/mL (180-914); cholesterol:hdl ratio screen 4.75
== END | disposition home or self-care (01) ==
LOC: BIMLAB 09:56
PROVIDERS: PCP Internal Medicine; Referring Provider Internal Medicine; Visit Provider Internal Medicine
DX: E78.2 Mixed hyperlipidemia (principal); Z85.46 Personal history of malignant neoplasm of prostate; R20.0 Anesthesia of skin; R41.89 Other symptoms and signs involving cognitive functions and awareness
CPT/HCPCS: 36415; 80053; 80061; 82607; 84153; 85025